=== PATIENT | female | born 1990 | race Caucasian/White ===

== ENCOUNTER 2017-01-14 18:07 | Emergency (ER) | payer SELFPAY ==
[~2017-01-14] VITALS: Ht 172.7 cm; Wt 76.3 kg
[2017-01-14 18:09] VITALS: BP 115/88
[2017-01-14] MEDS ORDERED: DIPH,PERTUSS(ACELL),TET VAC/PF 0.5 ML IM-VACC ONE ×2 (18:30→18:31)
== END 2017-01-14 19:30 | disposition home or self-care (01) ==
LOC: ED 19:26
DX: L03.113 Cellulitis of right upper limb (principal)
CPT/HCPCS: 90471; 90715